=== PATIENT | male | born 1965 ===

== ENCOUNTER 2023-03-24 18:08 | Emergency (ER) | payer MEDICAID, OTHER ==
[~2023-03-24] VITALS: Ht 172.7 cm; Wt 72.0 kg
[2023-03-24 18:15] VITALS: O2SAT 98
[2023-03-24] MEDS ORDERED: KETOROLAC 30MG/ML VIAL IM ONE (22:00)
[2023-03-24 22:30] VITALS: BP 123/87
[2023-03-24] MEDS ORDERED: NAPR-1176 MT (22:49)
[2023-03-24 23:13] VITALS: PULSE 89; RESP 20; TEMP 98.4
== END 2023-03-24 23:15 | disposition home or self-care (01) ==
LOC: ER 18:08
DX: S80.02XA Contusion of left knee, initial encounter (principal); E11.9 Type 2 diabetes mellitus without complications; W19.XXXA Unspecified fall, initial encounter; Y93.89 Activity, other specified; Y92.89 Other specified places as the place of occurrence of the external cause; Y99.8 Other external cause status
CPT/HCPCS: 73552; 73562; 96372; 99284; J1885; Z7610 ×2; L1830